=== PATIENT | female | born 1975 | race Caucasian/White ===

== ENCOUNTER 2019-11-22 17:01 | Emergency (ER) | payer BC, SELFPAY ==
[2019-11-22 17:09] VITALS: BP 98/53; PULSE 85; RESP 15; TEMP 36.8; O2SAT 100
--- NOTE | 2019-11-22 18:17 | ED.GENADULT ---
HPI - General Adult General Chief complaint: Wound/Laceration Stated complaint: sliced my finger with a mandolin Time Seen by Provider: 11/22/19 17:09 Source: patient Mode of arrival: ambulatory Limitations: no limitations History of Present Illness HPI narrative: Patient is a 44-year-old female who presents with skin avulsion of the right distal thumb that occurred just prior to arrival while using a sharp edge patient notes that her tetanus is not up-to-date but is refusing a tetanus at this time patient denies other injuries or complaints just notes mild burning pain worse with touch otherwise resting comfortably denying other complaints Related Data Allergies Allergy/AdvReac Type Severity Reaction Status Date / Time No Known Allergies Allergy Verified 11/22/19 17:13 Review of Systems Review of Systems: All systems reviewed & are unremarkable except as noted in HPI and below PMFSH Social History Social History Gender identity (if verbalized by the patient): Female Exam Narrative: Exam Narrative: GENERAL: Well-appearing, well-nourished, and in no acute distress. HEAD: Normocephalic, atraumatic. EYES: PERRLA and EOMI. ENT: Nares clear, no rhinorrhea or epistaxis. Mucous membranes moist. EXTREMITIES: Normal range of motion. No edema. SKIN: Warm, dry, no rash. Half centimeter distal right skin avulsion of the distal fish NEURO: No focal deficits. Alert and oriented x3. Neurovascularly intact PSYCH: Normal mood and affect. Course Course Emergency Course: Patient in the room in no distress aware of case findings treatment plan and diagnosis Vital Signs Vital signs: Vital Signs Temperature 98.2 F 11/22/19 17:09 Pulse Rate 85 11/22/19 17:09 Respiratory Rate 15 11/22/19 17:09 Blood Pressure 98/53 L 11/22/19 17:09 Pulse Oximetry 100 11/22/19 17:09 Temperature 98.2 F 11/22/19 17:09 Pulse Rate 85 11/22/19 17:09 Respiratory Rate 15 11/22/19 17:09 Blood Pressure 98/53 L 11/22/19 17:09 Pulse Oximetry 100 11/22/19 17:09 Procedures Other Procedure Procedure 1: Other Procedure: Let applied to the distal right thumb and Surgicel with hemostasis achieved with 4 x 4 and [place] Medical Decision Making MDM Narrative Medical decision making narrative: Patients injury or pain is consistent with musculoskeletal etiology. No signs of neurological or vascular compromise on exam. Compartments and tisues are soft without signs of compartment syndrome. Pain is felt appropriate for further evaluation on an outpatient basis. Vital Signs Vital Signs: Vital Signs Temperature 98.2 F 11/22/19 17:09 Pulse Rate 85 11/22/19 17:09 Respiratory Rate 15 11/22/19 17:09 Blood Pressure 98/53 L 11/22/19 17:09 Pulse Oximetry 100 11/22/19 17:09 Temperature 98.2 F 11/22/19 17:09 Pulse Rate 85 11/22/19 17:09 Respiratory Rate 15 11/22/19 17:09 Blood Pressure 98/53 L 11/22/19 17:09 Pulse Oximetry 100 11/22/19 17:09 Discharge Plan Discharge Clinical Impression: Avulsion of skin Patient Disposition: Home, Self-Care Condition: Stable Instructions: Antibiotic Form, Skin Avulsion (ED) Additional Instructions: Follow up with primary care in the next 7 days for reevaluation as needed return if symptoms worsen or concerns, any increase in redness swelling pain or fever over 100.5 Clean wound with mild soapy water. Apply antibiotic ointment and clean dressing at least three times daily Follow-up/Referrals: PHYSICIAN NOT ON STAFF,NONSTAFF [Primary Care Provider] -
== END 2019-11-22 18:47 | disposition home or self-care (01) ==
PROVIDERS: Emergency Provider Emergency Medicine
DX: S61.011A Laceration without foreign body of right thumb without damage to nail, initial encounter (principal); W26.8XXA Contact with other sharp object(s), not elsewhere classified, initial encounter
CPT/HCPCS: 12001; 99282